=== PATIENT | male | born 1965 | race Caucasian/White ===

== ENCOUNTER 2016-10-11 22:26 | Inpatient (IN) | payer MEDICAID ==
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
[2016-10-11 23:38] LABS: % IMMATURE GRANULYOCYTES 1.5 % (0.0-1.1); ABSOLUTE IMMATURE GRANULOCYTES 0.09 10^3/uL (0.00-0.10); ADD DIFF? NO; ADD MORPH? NO; ADD SCAN? NO; ATYPICAL LYMPHOCYTE FLAG 10 (0-99); FRAGMENT RBC FLAG 0 (0-99); HEMATOCRIT 37.2 % (40.0-51.0); HEMOGLOBIN 12.9 g/dL (13.7-17.5); LEFT SHIFT FLG 10 (0-99); LIPEMIA HEMOLYSIS FLAG 90 (0-99); MEAN CELL HEMOGLOBIN 32.3 pg (27.9-34.1); MEAN CELL HEMOGLOBIN CONCENTR. 34.7 g/dL (32.4-36.7); PLATELET CLUMPS FLAG 0 (0-99); PLATELET COUNT 190 10^3/uL (150-400); RED CELL DISTRIBUTION WIDTH 12.3 % (11.5-15.2)
[2016-10-11 23:51] LABS: ANION GAP 10 mEq/L (8-16); CALCIUM 8.4 mg/dL (8.5-10.4); CARBON DIOXIDE 24 mEq/l (22-31); CHLORIDE 106 mEq/L (97-110); CREATININE 0.7 mg/dL (0.7-1.3); GLOMERULAR FILTRATION RATE > 60; GLUCOSE 95 mg/dL (70-100); POTASSIUM 4.2 mEq/L (3.5-5.2); SODIUM 140 mEq/L (134-144)
[2016-10-11] MEDS ORDERED: ONDANSETRON DISINTEGRATING 4 MG TAB PO PRN (23:54)
[2016-10-11] MEDS ORDERED: ACETAMINOPHEN 325 MG TAB PO PRN (23:54)
[2016-10-11] MEDS ORDERED: ONDANSETRON 4 MG/2 ML VIAL IVP PRN (23:54)
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
[2016-10-12 05:11] LABS: % IMMATURE GRANULYOCYTES 1.5 % (0.0-1.1); ABSOLUTE IMMATURE GRANULOCYTES 0.09 10^3/uL (0.00-0.10); ADD DIFF? NO; ADD MORPH? NO; ADD SCAN? NO; ATYPICAL LYMPHOCYTE FLAG 10 (0-99); FRAGMENT RBC FLAG 0 (0-99); HEMATOCRIT 39.1 % (40.0-51.0); HEMOGLOBIN 13.4 g/dL (13.7-17.5); LEFT SHIFT FLG 10 (0-99); LIPEMIA HEMOLYSIS FLAG 90 (0-99); MEAN CELL HEMOGLOBIN 31.8 pg (27.9-34.1); MEAN CELL HEMOGLOBIN CONCENTR. 34.3 g/dL (32.4-36.7); MEAN CELL VOLUME 92.7 fL (81.5-99.8); PLATELET CLUMPS FLAG 0 (0-99); PLATELET COUNT 207 10^3/uL (150-400); RED BLOOD CELL COUNT 4.22 10^6/uL (4.40-6.38); RED CELL DISTRIBUTION WIDTH 12.4 % (11.5-15.2)
[2016-10-12 05:42] LABS: ALANINE AMINOTRANSFERASE 25 IU/L (21-72); ALBUMIN 2.6 g/dL (3.5-5.0); ALKALINE PHOSPHATASE 100 IU/L (38-126); ANION GAP 7 mEq/L (8-16); ASPARTATE AMINOTRANSFERASE 36 IU/L (17-59); BILIRUBIN,TOTAL 0.4 mg/dL (0.1-1.4); CALCIUM 8.7 mg/dL (8.5-10.4); CARBON DIOXIDE 24 mEq/l (22-31); CHLORIDE 106 mEq/L (97-110); CREATININE 0.6 mg/dL (0.7-1.3); GLOMERULAR FILTRATION RATE > 60; GLUCOSE 84 mg/dL (70-100); POTASSIUM 4.2 mEq/L (3.5-5.2); SODIUM 137 mEq/L (134-144); TOTAL PROTEIN 6.9 g/dL (6.3-8.2)
[2016-10-12] MEDS: ceFAZolin 2 GM/DEXTROSE 100 ML IV SCH ×3 (05:49→22:24)
[2016-10-12] MEDS: oxyCODONE IR 5 MG TAB PO PRN ×3 (09:07→20:21)
[2016-10-12] MEDS: ENOXAPARIN 40 MG/0.4 ML SYR SC SCH (09:07)
--- NOTE | 2016-10-12 11:26 | HOSPPROG ---
Hospitalist Progress Note Assessment/Plan: #LLE cellulitis/MSSA bacteremia: treated at [facility] for plan through 10/21. Not thought to be good OPAT pt with h/o meth. Upon my interview, he say last used 5 years ago. He is homeless -obtaining records from [facility] where he left AMA due to "issues with staffing executive there ". - Appreciate Dr. Martin's assistance to determine abx duration #Bipolar: Latuda #h/o meth abuse: denies recent use #Diet: regular #DVT ppx: Lovenox #Disp: warrants inpt admission with bacteremia and IV abx Subjective: denies fever, chills Objective: Vital Signs Temp Pulse Resp BP Pulse Ox 36.4 C 76 16 126/75 H 94 10/12/16 08:01 10/12/16 08:01 10/12/16 08:01 10/12/16 08:01 10/12/16 08:01 Laboratory Results 10/12/16 04:34 10/12/16 04:34 10/11/16 10/12/16 10/13/16 05:59 05:59 05:59 Intake Total 450 Balance 450 - Physical Exam Constitutional: other (overweight) Eyes: PERRL Ears, Nose, Mouth, Throat: moist mucous membranes, hearing normal Cardiovascular: regular rate and rhythym, no murmur, rub, or gallop Respiratory: no respiratory distress Gastrointestinal: normoactive bowel sounds Genitourinary: no bladder fullness Skin: warm Musculoskeletal: other (lower left leg with mild erythma. Golf ball sized lesion on calf marked with mild induration) Neurologic: AAOx3, CN II-XII Intact Psychiatric: interacting appropriately ICD10 Worksheet Patient Problems: Problems Problem Status Onset Cellulitis Acute
[2016-10-12] MEDS: LURASIDONE HCL 40 MG TAB PO SCH (16:26)
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
[2016-10-12] MEDS: PRAZOSIN HCL 1 MG CAP PO SCH (20:21)
[2016-10-12] MEDS: GABAPENTIN 300 MG CAP PO SCH (20:21)
[2016-10-13] MEDS: oxyCODONE IR 5 MG TAB PO PRN ×5 (02:00→20:54)
[2016-10-13] MEDS: ceFAZolin 2 GM/DEXTROSE 100 ML IV SCH ×3 (05:27→20:54)
[2016-10-13] MEDS: GABAPENTIN 300 MG CAP PO SCH ×2 (08:22→20:55)
[2016-10-13] MEDS: ENOXAPARIN 40 MG/0.4 ML SYR SC SCH (08:23)
--- NOTE | 2016-10-13 08:28 | PCMIDPN ---
Assessment/Plan: Assessment/Plan: 1. MSSA/Group A strep bacteremia: -per notes, 1 out of 2 sets on 10/03/16 positive. f/u blood cx from 10/05 ngtd. -f/u blood cx hre 10/11/16 ngtd -TTE with no vegetations. -on Ancef through 10/19/16 per records. 2. LLE cellulitis: -improved. minimal swelling present. one spot with more residual erythema medially compared to rest of leg, also indurated. non fluctuant area. -Continue elevated LE. 3. Previous hx of IVDU MEds Ancef 2g IV q8- Subjective: afebrile. FEels better. eating breakfast. denies sob, abd pain or diarrhea. less swelling involving his LLE. less red. one spot medial which has been more red in the past is improving. less tender overall. Objective: Vital Signs Temp Pulse Resp BP Pulse Ox 36.6 C 89 14 116/71 96 10/13/16 07:52 10/13/16 07:52 10/13/16 07:52 10/13/16 07:52 10/13/16 07:52 Laboratory Results 10/12/16 04:34 10/12/16 04:34 10/12/16 10/13/16 10/14/16 05:59 05:59 05:59 Intake Total 2300 Output Total 3 Balance 2297 - Physical Exam General Appearance: alert, no apparent distress Respiratory: lungs clear Cardiac/Chest: regular rate, rhythm Extremities: swelling (mild LLE) Abdomen: normal bowel sounds, non-tender, soft, No distended Skin: erythema (mild erythema medially on mid leg. indurated. nontender.) ICD10 Worksheet Patient Problems: Problems Problem Status Onset Cellulitis Acute
--- NOTE | 2016-10-13 14:28 | HOSPPROG ---
Hospitalist Progress Note Assessment/Plan: #LLE cellulitis/MSSA bacteremia: treated at [facility];nNot thought to be good OPAT pt with h/o meth and homeless -IV Ancef through 10/19, no vegetations on TTE -spoke with his sister who is very concerned that he would not be compliant with IV abx outpatient #Bipolar: Latuda #h/o meth abuse: denies recent use #Diet: regular #DVT ppx: Lovenox #Disp: warrants inpt admission with bacteremia and IV abx Subjective: mild pain lateral aspet left calf Objective: Vital Signs Temp Pulse Resp BP Pulse Ox 36.6 C 89 14 116/71 96 10/13/16 07:52 10/13/16 07:52 10/13/16 07:52 10/13/16 07:52 10/13/16 07:52 Laboratory Results 10/12/16 04:34 10/12/16 04:34 10/12/16 10/13/16 10/14/16 05:59 05:59 05:59 Intake Total 2300 Output Total 3 Balance 2297 - Time Spent With Patient Time Spent with Patient: greater than 35 minutes (spent counseling sister on phone about abx regimen and social situation) Time Spent with Patient: Greater than 35 minutes spent on this patients care, greater than 50% of time spent counseling, educating, and coordinating care regarding the above mentioned plan. - Physical Exam Constitutional: no apparent distress Eyes: PERRL Ears, Nose, Mouth, Throat: moist mucous membranes Cardiovascular: regular rate and rhythym, no murmur, rub, or gallop Respiratory: no respiratory distress Gastrointestinal: normoactive bowel sounds Genitourinary: no bladder fullness Skin: warm Musculoskeletal: other (mild calf erythema. Small area induration on calf, but fluctuant) Neurologic: AAOx3, CN II-XII Intact Psychiatric: interacting appropriately ICD10 Worksheet Patient Problems: Problems Problem Status Onset Cellulitis Acute
[2016-10-13] MEDS ORDERED: BISACODYL 10 MG SUPP PR PRN (17:07)
[2016-10-13] MEDS ORDERED: POLYETHYLENE GLYCOL 3350 17 GM PKT PO PRN (17:07)
[2016-10-13] MEDS ORDERED: MAGNESIUM HYDROXIDE 30 ML UDCUP PO PRN (17:07)
[2016-10-13] MEDS ORDERED: LACTULOSE 20 GM/30 ML UDCUP PO PRN (17:07)
[2016-10-13] MEDS: LURASIDONE HCL 40 MG TAB PO SCH (17:19)
[2016-10-13] MEDS: PRAZOSIN HCL 1 MG CAP PO SCH (20:54)
[2016-10-13] MEDS: SENNOSIDES/DOCUSATE SODIUM TAB PO SCH (20:54)
[2016-10-14] MEDS: oxyCODONE IR 5 MG TAB PO PRN ×5 (02:40→19:29)
[2016-10-14] MEDS: ceFAZolin 2 GM/DEXTROSE 100 ML IV SCH ×3 (05:26→21:58)
[2016-10-14] MEDS: ENOXAPARIN 40 MG/0.4 ML SYR SC SCH (08:57)
[2016-10-14] MEDS: SENNOSIDES/DOCUSATE SODIUM TAB PO SCH ×2 (08:57→19:28)
[2016-10-14] MEDS: GABAPENTIN 300 MG CAP PO SCH ×2 (08:57→19:28)
--- NOTE | 2016-10-14 12:52 | PCMIDPN ---
Assessment/Plan: #MSSA / GAS bacteremia, source LLE cellulitis/skin trauma. Negative TTE and rapid clearance of blood cultures make endocarditis unlikely -- IV antibiotics through 10/19/16 based on cultures at OSH (see Dr Servin's) note. --continue cefazolin #LLE cellulitis - much improved, still small indurated area L medial ankle #Remote h/o IVDU w meth, reports clean x 5 years --Check HBV, HCV, HIV meds cefazolin 2gm IV q8h, through 10/19/16 micro / blood cx (2) ngtd Subjective: Patient reports being homeless because "down on luck" Relates to divorce. No EtOH since last 90s, father with cirrhosis. Wants to "get back on his feet." Sister lives in [place] but he cannot stay with her - unclear reasons. Objective: Vital Signs Temp Pulse Resp BP Pulse Ox 37.2 C 84 18 121/76 H 94 10/14/16 10:58 10/14/16 10:58 10/14/16 10:58 10/14/16 10:58 10/14/16 10:58 Laboratory Results 10/12/16 04:34 10/12/16 04:34 10/13/16 10/14/16 10/15/16 05:59 05:59 05:59 Intake Total 2300 600 Output Total 3 1 Balance 2297 599 - Physical Exam General Appearance: alert, no apparent distress Respiratory: lungs clear Neck: supple Cardiac/Chest: regular rate, rhythm Extremities: swelling (swelling and inflammation L medial ankle, not clearly fluctuant) Abdomen: non-tender, soft Male Genitalia: No draper Skin: No rash, No signs of IVDA Neuro/Psych: alert, normal mood/affect, oriented x 3 ICD10 Worksheet Patient Problems: Problems Problem Status Onset Cellulitis Acute
--- NOTE | 2016-10-14 14:11 | HOSPPROG ---
Hospitalist Progress Note Assessment/Plan: #LLE cellulitis/MSSA bacteremia: treated at [facility];nNot thought to be good OPAT pt with h/o meth and homeless -IV Ancef through 10/19, no vegetations on TTE -spoke with his sister who is very concerned that he would not be compliant with IV abx outpatient, but he does have a vehicle #Bipolar: Latuda #h/o meth abuse: denies recent use #Diet: regular #DVT ppx: Lovenox #Disp: warrants inpt admission for IV abx Objective: Vital Signs Temp Pulse Resp BP Pulse Ox 37.2 C 84 18 121/76 H 94 10/14/16 10:58 10/14/16 10:58 10/14/16 10:58 10/14/16 10:58 10/14/16 10:58 Laboratory Results 10/12/16 04:34 10/12/16 04:34 10/13/16 10/14/16 10/15/16 05:59 05:59 05:59 Intake Total 2300 600 Output Total 3 1 Balance 2297 599 - Physical Exam Constitutional: no apparent distress, obese Eyes: PERRL Ears, Nose, Mouth, Throat: moist mucous membranes Cardiovascular: regular rate and rhythym, no murmur, rub, or gallop Respiratory: no respiratory distress Gastrointestinal: normoactive bowel sounds Genitourinary: no bladder fullness Skin: warm Musculoskeletal: other (mild swelling left leg and redness. Golf-ball sized area of induration on calf, unchanged. No fluctuance) Neurologic: AAOx3, CN II-XII Intact Psychiatric: interacting appropriately ICD10 Worksheet Patient Problems: Problems Problem Status Onset Cellulitis Acute
[2016-10-14] MEDS: LURASIDONE HCL 40 MG TAB PO SCH (17:48)
[2016-10-14] MEDS: PRAZOSIN HCL 1 MG CAP PO SCH (19:29)
[2016-10-15] MEDS: oxyCODONE IR 5 MG TAB PO PRN ×4 (00:34→21:32)
[2016-10-15 05:26] LABS: HEMATOCRIT 38.5 % (40.0-51.0); HEMOGLOBIN 12.9 g/dL (13.7-17.5); MEAN CELL HEMOGLOBIN 31.8 pg (27.9-34.1); MEAN CELL HEMOGLOBIN CONCENTR. 33.5 g/dL (32.4-36.7); MEAN CELL VOLUME 94.8 fL (81.5-99.8); RED BLOOD CELL COUNT 4.06 10^6/uL (4.40-6.38); RED CELL DISTRIBUTION WIDTH 12.6 % (11.5-15.2)
[2016-10-15 05:37] LABS: ANION GAP 11 mEq/L (8-16); CALCIUM 8.8 mg/dL (8.5-10.4); CARBON DIOXIDE 22 mEq/l (22-31); CHLORIDE 103 mEq/L (97-110); CREATININE 0.7 mg/dL (0.7-1.3); GLOMERULAR FILTRATION RATE > 60; GLUCOSE 88 mg/dL (70-100); POTASSIUM 4.6 mEq/L (3.5-5.2); SODIUM 136 mEq/L (134-144)
[2016-10-15] MEDS: ceFAZolin 2 GM/DEXTROSE 100 ML IV SCH ×3 (05:39→22:27)
[2016-10-15] MEDS: GABAPENTIN 300 MG CAP PO SCH ×2 (07:35→21:31)
[2016-10-15] MEDS: SENNOSIDES/DOCUSATE SODIUM TAB PO SCH ×2 (07:35→21:31)
--- NOTE | 2016-10-15 08:29 | HOSPPROG ---
Hospitalist Progress Note Assessment/Plan: Patient is a 51-year-old male has a history of bipolar disorder. He was recently at [facility] for treatment of cellulitis with associated bacteremia. He left there because he was not happy with the care. Today is my 1st encounter with the patient. Chart reviewed. Reviewed his care with Dr Martin. * Left lower extremity cellulitis w recent bacteremia on cefazolin through 10/19 no vegetation on the TTE blood cultures show no growth * bipolar disorder on Latuda * homeless and history of meth use likely not to be compliant with getting iv abx no s/sx of withdrawal from meth *DVT ppx: Lovenox *Disp: warrants inpt admission for IV abx Subjective: Rosendo said his leg is much better. Objective: Vital Signs Temp Pulse Resp BP Pulse Ox 36.7 C 83 16 118/82 H 92 10/15/16 07:19 10/15/16 07:19 10/15/16 07:19 10/15/16 07:19 10/15/16 07:19 Laboratory Results 10/15/16 04:22 10/15/16 04:22 10/14/16 10/15/16 10/16/16 05:59 05:59 05:59 Intake Total 600 300 Output Total 1 Balance 599 300 - Physical Exam Constitutional: no apparent distress, appears nourished, not in pain Eyes: PERRL Ears, Nose, Mouth, Throat: hearing normal Cardiovascular: regular rate and rhythym Respiratory: no respiratory distress Gastrointestinal: normoactive bowel sounds Skin: other (left lower ext w minimal redness,some swelling around ankle area/ has a small pea size elevated area on anterior hawkins area) Musculoskeletal: full muscle strength Neurologic: AAOx3 Psychiatric: interacting appropriately ICD10 Worksheet Patient Problems: Problems Problem Status Onset Cellulitis Acute
[2016-10-15] MEDS: ENOXAPARIN 40 MG/0.4 ML SYR SC SCH (10:28)
--- NOTE | 2016-10-15 16:46 | PCMIDPN ---
Assessment/Plan: Assessment/Plan: * MSSA/group A strep bacteremia associated with left lower extremity cellulitis : Cellulitis resolved except for small focus of erythema and induration medially. No focal fluctuance. Continue cefazolin with anticipated 2 week course post clearance of bacteremia which will be completed 10/19/2016. Apply warm compresses to the area of focal erythema. 10/15/16 16:44 Subjective: Patient feels better with mild pain over left medial calf. Objective: Vital Signs Temp Pulse Resp BP Pulse Ox 36.9 C 86 18 135/78 H 96 10/15/16 15:42 10/15/16 15:42 10/15/16 15:42 10/15/16 15:42 10/15/16 15:42 Laboratory Results 10/15/16 04:22 10/15/16 04:22 10/14/16 10/15/16 10/16/16 05:59 05:59 05:59 Intake Total 600 300 Output Total 1 Balance 599 300 Cefazolin with stop date 10/19/2016 Blood cultures 10/11/2016 no growth - Physical Exam General Appearance: alert, no apparent distress EENT: No scleral icterus, No conjunctival petechiae Respiratory: lungs clear, No respiratory distress Cardiac/Chest: regular rate, rhythm Extremities: inflammation (Left lower extremity with small focal area of erythema and induration medially without focal fluctuance; remainder of cellulitis resolved) ICD10 Worksheet Patient Problems: Problems Problem Status Onset Cellulitis Acute
[2016-10-15] MEDS: LURASIDONE HCL 40 MG TAB PO SCH (18:07)
[2016-10-15] MEDS: PRAZOSIN HCL 1 MG CAP PO SCH (21:32)
[2016-10-15 22:35] LABS: HEPATITIS Bs Ab QUANT 6.2 mIU/mL
[2016-10-16] MEDS: ceFAZolin 2 GM/DEXTROSE 100 ML IV SCH ×3 (06:20→21:54)
--- NOTE | 2016-10-16 08:56 | HOSPPROG ---
Hospitalist Progress Note Assessment/Plan: Patient is a 51-year-old male has a history of bipolar disorder. He was recently at [facility] for treatment of cellulitis with associated bacteremia. He left there because he was not happy with the care. evaluated patient with Dr Akins. * Left lower extremity cellulitis w recent bacteremia on cefazolin through 10/19 no vegetation on the TTE blood cultures show no growth concern for localized increased swelling in the left anterior hawkins area/ will get an ultrasound *+ hepatitis C antibody RNA to be checked * bipolar disorder on Latuda * homeless and history of meth use likely not to be compliant with getting iv abx no s/sx of withdrawal from meth *DVT ppx: Lovenox *Disp: warrants inpt admission for IV abx Subjective: Rosendo has no complaints/ has a good appetite. Objective: Vital Signs Temp Pulse Resp BP Pulse Ox 36.8 C 81 18 124/76 H 94 10/16/16 08:00 10/16/16 08:00 10/16/16 08:00 10/16/16 08:00 10/16/16 08:00 Laboratory Results 10/15/16 04:22 10/15/16 04:22 10/15/16 10/16/16 10/17/16 05:59 05:59 05:59 Intake Total 300 400 Balance 300 400 - Physical Exam Constitutional: no apparent distress, appears nourished, not in pain Eyes: PERRL Ears, Nose, Mouth, Throat: hearing normal Respiratory: no respiratory distress Gastrointestinal: normoactive bowel sounds Skin: warm, other (has an area of fluctuance on left hawkins area, walnut size) Musculoskeletal: full muscle strength Neurologic: AAOx3 Psychiatric: interacting appropriately, not anxious ICD10 Worksheet Patient Problems: Problems Problem Status Onset Cellulitis Acute
--- NOTE | 2016-10-16 09:02 | PCMIDPN ---
Assessment/Plan: 1. MSSA/ group a strep bacteremia secondary to left lower extremity cellulitis: Cellulitis improving, but the small patch of erythema has grown in size, concerning for developing phlegmon/ drainable focus. Will ultrasound today; patient may need incision and drainage tomorrow. Continue Ancef as is. 2. Hepatitis-C antibody positive: Will obtain RNA. The patient states he has never been told he has hepatitis C. HIV antibody negative and the patient was informed of this. 3. Miscellaneous: Patient's hepatitis-B surface antibody is indeterminate. For now, will obtain hepatitis a total antibody in the setting of possible chronic hepatitis-C and embark on vaccination/boosting pending this data point. 10/16/16 09:04 Subjective: in good spirits. Reports that small patch of erythema medial left lower extremity is " Very itchy." no diarrhea on the antibiotics. Objective: Ancef 2 g IV q.8 hours, stop date October 19 afebrile Vital Signs Temp Pulse Resp BP Pulse Ox 36.8 C 81 18 124/76 H 94 10/16/16 08:00 10/16/16 08:00 10/16/16 08:00 10/16/16 08:00 10/16/16 08:00 Laboratory Results 10/15/16 04:22 10/15/16 04:22 10/15/16 10/16/16 10/17/16 05:59 05:59 05:59 Intake Total 300 400 Balance 300 400 hepatitis-B surface antibody indeterminate HIV antibody negative hepatitis C antibody positive - Physical Exam General Appearance: alert, no apparent distress EENT: pharynx normal, No thrush Extremities: other ( peripheral IV site right upper extremity looks fine. left lower extremity without significant swelling. Has some tenderness and discomfort with dorsiflexion, but area of cellulitis along the Achilles tendon looks practically resolved. patch of erythema medial left lower extremity is now raised, warm, and approximately quarter-sized; this is bigger compared with yesterday per nursing staff. It is not fluctuant and not tender.) ICD10 Worksheet Patient Problems: Problems Problem Status Onset Cellulitis Acute
[2016-10-16] MEDS: SENNOSIDES/DOCUSATE SODIUM TAB PO SCH ×2 (09:07→21:53)
[2016-10-16] MEDS: GABAPENTIN 300 MG CAP PO SCH ×2 (09:07→21:54)
[2016-10-16] MEDS: oxyCODONE IR 5 MG TAB PO PRN ×3 (09:08→21:52)
[2016-10-16] MEDS: ENOXAPARIN 40 MG/0.4 ML SYR SC SCH (09:53)
[2016-10-16] MEDS: LURASIDONE HCL 40 MG TAB PO SCH (18:05)
[2016-10-16] MEDS: PRAZOSIN HCL 1 MG CAP PO SCH (21:55)
[2016-10-17] MEDS: ceFAZolin 2 GM/DEXTROSE 100 ML IV SCH ×3 (06:23→21:32)
[2016-10-17] MEDS: ENOXAPARIN 40 MG/0.4 ML SYR SC SCH (08:02)
[2016-10-17] MEDS: GABAPENTIN 300 MG CAP PO SCH ×2 (08:02→21:31)
[2016-10-17] MEDS: SENNOSIDES/DOCUSATE SODIUM TAB PO SCH ×2 (08:03→21:31)
[2016-10-17] MEDS: oxyCODONE IR 5 MG TAB PO PRN ×3 (08:03→19:45)
--- NOTE | 2016-10-17 08:33 | HOSPPROG ---
Hospitalist Progress Note Assessment/Plan: Patient is a 51-year-old male has a history of bipolar disorder. He was recently at [facility] for treatment of cellulitis with associated bacteremia. He left there because he was not happy with the care. * Left lower extremity cellulitis w recent bacteremia on cefazolin through 10/19 no vegetation on the TTE blood cultures show no growth concern for localized increased swelling in the left anterior hawkins area/ ultrasound shows nothing drainable/better today *+ hepatitis C antibody * bipolar disorder on Latuda * homeless and history of meth use CM giving him resources/had been connected w [facility], but never f/u *DVT ppx: Lovenox *Disp: warrants inpt admission for IV abx *Plan: dc Wednesday, he will have received full treatment w abx/ CM will give him resources Subjective: Rosendo is feeling well/ left leg is not causing pain. Ambulating well. Objective: Vital Signs Temp Pulse Resp BP Pulse Ox 36.7 C 82 18 135/79 H 96 10/17/16 08:00 10/17/16 08:00 10/17/16 08:00 10/17/16 08:00 10/17/16 08:00 Microbiology 10/11/16 23:30 Blood Culture - Final Blood 10/11/16 23:30 Blood Culture - Final Blood Laboratory Results 10/15/16 04:22 10/15/16 04:22 10/16/16 10/17/16 10/18/16 05:59 05:59 05:59 Intake Total 400 Balance 400 - Physical Exam Constitutional: no apparent distress, appears nourished, not in pain Eyes: PERRL Ears, Nose, Mouth, Throat: hearing normal Cardiovascular: regular rate and rhythym Respiratory: no respiratory distress Gastrointestinal: normoactive bowel sounds Skin: warm, other (left lower ext with minimal redness/ has a localized flutuent area, but looks better today/smaller) Musculoskeletal: full muscle strength Neurologic: AAOx3 Psychiatric: interacting appropriately, not anxious, not encephalopathic ICD10 Worksheet Patient Problems: Problems Problem Status Onset Cellulitis Acute
--- NOTE | 2016-10-17 12:58 | PCMIDPN ---
Assessment/Plan: #MSSA / GAS bacteremia, source LLE cellulitis/skin trauma. Negative TTE and rapid clearance of blood cultures make endocarditis unlikely -- IV antibiotics through 10/19/16 based on cultures at OSH (see Dr Servin's) note. --continue cefazolin --check labs 1 more time tomorrow before discharge #LLE cellulitis - still small indurated area L medial ankle, US showed no drainable areas. Suspect post-infection inflammation #HCV positive: would check VL meds cefazolin 2gm IV q8h, through 10/19/16 micro 10/11 blood cx (2) ngtd Subjective: feeling well still a little pain at L ankle Objective: Vital Signs Temp Pulse Resp BP Pulse Ox 36.7 C 82 18 135/79 H 96 10/17/16 08:00 10/17/16 08:00 10/17/16 08:00 10/17/16 08:00 10/17/16 08:00 Microbiology 10/11/16 23:30 Blood Culture - Final Blood 10/11/16 23:30 Blood Culture - Final Blood Laboratory Results 10/15/16 04:22 10/15/16 04:22 10/16/16 10/17/16 10/18/16 05:59 05:59 05:59 Intake Total 400 Balance 400 - Physical Exam General Appearance: alert, no apparent distress EENT: pale conjunctiva, No scleral icterus Respiratory: No accessory muscle use Extremities: inflammation (round area L medial ankle, no fluctuance) Skin: No rash Neuro/Psych: alert, normal mood/affect, oriented x 3 ICD10 Worksheet Patient Problems: Problems Problem Status Onset Cellulitis Acute
[2016-10-17] MEDS: LURASIDONE HCL 40 MG TAB PO SCH (19:45)
[2016-10-17] MEDS: PRAZOSIN HCL 1 MG CAP PO SCH (21:32)
[2016-10-18 05:32] LABS: % IMMATURE GRANULYOCYTES 0.5 % (0.0-1.1); ABSOLUTE IMMATURE GRANULOCYTES 0.03 10^3/uL (0.00-0.10); ADD DIFF? NO; ADD MORPH? NO; ADD SCAN? NO; ATYPICAL LYMPHOCYTE FLAG 0 (0-99); FRAGMENT RBC FLAG 0 (0-99); HEMATOCRIT 38.2 % (40.0-51.0); HEMOGLOBIN 12.9 g/dL (13.7-17.5); LEFT SHIFT FLG 0 (0-99); LIPEMIA HEMOLYSIS FLAG 90 (0-99); MEAN CELL HEMOGLOBIN 31.7 pg (27.9-34.1); MEAN CELL HEMOGLOBIN CONCENTR. 33.8 g/dL (32.4-36.7); MEAN CELL VOLUME 93.9 fL (81.5-99.8); MEAN PLATELET VOLUME 9.1 fL (8.7-11.7); PLATELET CLUMPS FLAG 0 (0-99); PLATELET COUNT 211 10^3/uL (150-400); RED BLOOD CELL COUNT 4.07 10^6/uL (4.40-6.38); RED CELL DISTRIBUTION WIDTH 12.5 % (11.5-15.2)
[2016-10-18 05:45] LABS: ANION GAP 8 mEq/L (8-16); CALCIUM 8.5 mg/dL (8.5-10.4); CARBON DIOXIDE 25 mEq/l (22-31); CHLORIDE 103 mEq/L (97-110); CREATININE 0.6 mg/dL (0.7-1.3); GLOMERULAR FILTRATION RATE > 60; GLUCOSE 131 mg/dL (70-100); POTASSIUM 4.2 mEq/L (3.5-5.2); SODIUM 136 mEq/L (134-144)
[2016-10-18] MEDS: ceFAZolin 2 GM/DEXTROSE 100 ML IV SCH ×3 (06:19→22:08)
[2016-10-18] MEDS: GABAPENTIN 300 MG CAP PO SCH ×2 (09:41→22:07)
[2016-10-18] MEDS: SENNOSIDES/DOCUSATE SODIUM TAB PO SCH ×2 (09:41→22:25)
[2016-10-18] MEDS: oxyCODONE IR 5 MG TAB PO PRN ×4 (09:44→22:09)
[2016-10-18] MEDS: ENOXAPARIN 40 MG/0.4 ML SYR SC SCH (10:18)
--- NOTE | 2016-10-18 10:46 | HOSPPROG ---
Hospitalist Progress Note Assessment/Plan: Patient is a 51-year-old male has a history of bipolar disorder. He was recently at [facility] for treatment of cellulitis with associated bacteremia. He left there because he was not happy with the care. First encounter, chart reviewed. D/w Dr Henriquez. * Left lower extremity cellulitis w recent bacteremia on cefazolin through 10/19 no vegetation on the TTE blood cultures show no growth concern for localized increased swelling in the left anterior hawkins area/ ultrasound shows nothing drainable/better *+ hepatitis C antibody * bipolar disorder on Latuda * homeless and history of meth use CM giving him resources/had been connected w [facility], but never f/u *DVT ppx: Lovenox *Disp: warrants inpt admission for IV abx *Plan: dc Wednesday, he will have received full treatment w abx/ CM will give him resources Subjective: Feeling fine. No specific issues. No pain. Objective: Vital Signs Temp Pulse Resp BP Pulse Ox 36.7 C 76 14 120/74 93 10/18/16 07:50 10/18/16 07:50 10/18/16 07:50 10/18/16 07:50 10/18/16 07:50 Microbiology 10/11/16 23:30 Blood Culture - Final Blood 10/11/16 23:30 Blood Culture - Final Blood Laboratory Results 10/18/16 05:20 10/18/16 05:20 10/17/16 10/18/16 10/19/16 05:59 05:59 05:59 Intake Total 210 Balance 210 - Physical Exam Constitutional: no apparent distress, appears nourished, not in pain Eyes: PERRL, anicteric sclera, EOMI Ears, Nose, Mouth, Throat: moist mucous membranes, hearing normal, ears appear normal Cardiovascular: regular rate and rhythym, no murmur, rub, or gallop, No JVD Respiratory: no respiratory distress, no rales or rhonchi, reduced air movement Gastrointestinal: normoactive bowel sounds, No tenderness, No ascites Skin: warm, erythema, No induration Musculoskeletal: full muscle strength, no muscle tenderness, normal joint ROM Neurologic: AAOx3 Psychiatric: interacting appropriately, not anxious, not encephalopathic ICD10 Worksheet Patient Problems: Problems Problem Status Onset Cellulitis Acute
[2016-10-18] MEDS: LURASIDONE HCL 40 MG TAB PO SCH (19:13)
[2016-10-18] MEDS: PRAZOSIN HCL 1 MG CAP PO SCH (22:07)
[2016-10-19] MEDS: ceFAZolin 2 GM/DEXTROSE 100 ML IV SCH (06:06)
[2016-10-19] MEDS: oxyCODONE IR 5 MG TAB PO PRN (06:09)
[2016-10-19 08:48] VITALS: BP 93/53; PULSE 81; RESP 16; TEMP 97.7; O2SAT 95
[2016-10-19] MEDS: GABAPENTIN 300 MG CAP PO SCH (08:49)
[2016-10-19] MEDS: SENNOSIDES/DOCUSATE SODIUM TAB PO SCH (08:49)
[2016-10-19] MEDS: ENOXAPARIN 40 MG/0.4 ML SYR SC SCH (09:41)
--- NOTE | 2016-10-19 13:54 | GDS ---
[f rep st] DISCHARGE SUMMARY DISCHARGE DIAGNOSES: 1. Left lower extremity cellulitis with recent bacteremia. 2. Positive hepatitis C antibody. 3. Bipolar disorder. 4. Homeless. CONSULTATION: Infectious Disease. STUDIES AND PROCEDURES DONE: Extremity ultrasound. PHYSICAL EXAM: GENERAL: The patient is alert. VITAL SIGNS: Afebrile at 36.5, pulse is 81, respir atory rate 16, blood pressure is 93/53, saturating 95% on room air. I have seen and evaluated the patient on the day of discharge. HOSPITAL COURSE: The patient is a 51-year-old male, who presents with complaints of leg pain. He w as evaluated and diagnosed with: 1. Left lower extremity cellulitis with recent bacteremia. During this hospitalization, echocardio gram as well as ultrasound were performed. The patient received IV antibiotic therapy and an infect ious Disease consult. His cellulitis has completely resolved, with no further antibiotic needs at t he time of disposition. 2. Positive hepatitis C antibody. At the time of discharge, further laboratory evaluation was pend ing. He has been instructed to follow up in the outpatient setting for his laboratory results. 3. History of bipolar disorder. His home medications have been continued, and he will continue his therapy in the outpatient setting. 4. Homelessness. The patient has been evaluated by Case Management and resources have been provide d. He has been connected with the [employer], and will participate in this program at the time of disposition. DISCHARGE DISPOSITION: The patient will be discharged independently. DISCHARGE MEDICATIONS: Please refer to EMR form. I have not provided the patient any prescriptions at the time of disposition. TIME SPENT: I spent greater than 35 minutes in the care, coordination, and management of the yared sidhu's discharge. FOLLOWUP: Again, will be at [facility], as well as his primary mental healthcare provider. /[id number]/MODL
== END 2016-10-19 10:58 | disposition home or self-care (01) | DRG 603 ==
LOC: F3N 10-12 00:07 → F3E 10-13 17:28
PROVIDERS: ADMIT Student in an Organized Health Care Education/Training Program; ATTEND Internal Medicine
DX: L03.116 Cellulitis of left lower limb (principal); B95.61 Methicillin susceptible Staphylococcus aureus infection as the cause of diseases classified elsewhere; F31.9 Bipolar disorder, unspecified; R76.0 Raised antibody titer; F15.21 Other stimulant dependence, in remission; M10.9 Gout, unspecified; F17.210 Nicotine dependence, cigarettes, uncomplicated; Z88.0 Allergy status to penicillin; Z59.0 Homelessness
CPT/HCPCS: G0472; J0690; J1650

== ENCOUNTER 2018-08-27 07:52 | Emergency (ER) | payer MEDICAID | END 2018-08-27 09:33 | disposition home or self-care (01) ==